=== PATIENT | female | born 1950 | race Two or more races ===

== ENCOUNTER → 2021-05-18 | Emergency (ER) | payer OTHER ==
[~2021-05-18] VITALS: Ht 154.9 cm; Wt 52.2 kg
[~2021-05-18] MED LIST: SYNTHROID75 MCG PO; TAMOXIFEN CITRA20 MG PO; VITAMIN D3125 MC2 PO
== END | disposition home or self-care (01) ==
LOC: ER 11:13
DX: S61.216A Laceration without foreign body of right little finger without damage to nail, initial encounter (principal); W45.8XXA Other foreign body or object entering through skin, initial encounter; Y93.89 Activity, other specified; Y92.018 Other place in single-family (private) house as the place of occurrence of the external cause; Y99.8 Other external cause status

== ENCOUNTER 2022-04-07 12:17 | Emergency (ER) | payer OTHER ==
[~2022-04-07] VITALS: Ht 147.3 cm; Wt 52.2 kg
== END 2022-04-07 18:02 | disposition home or self-care (01) ==
LOC: ER 12:17
DX: N61.0 Mastitis without abscess (principal); Z85.3 Personal history of malignant neoplasm of breast; Z88.2 Allergy status to sulfonamides; Z88.5 Allergy status to narcotic agent

== ENCOUNTER 2023-12-27 19:14 | Emergency (ER) | payer OTHER ==
[~2023-12-27] VITALS: Ht 149.9 cm; Wt 53.1 kg
[2023-12-27] MEDS ORDERED: KETOROLAC TROMETHAMINE 60 MG VIAL IM ONE (22:00)
== END 2023-12-28 00:10 | disposition home or self-care (01) ==
LOC: ER 19:14
DX: M76.899 Other specified enthesopathies of unspecified lower limb, excluding foot (principal); E05.80 Other thyrotoxicosis without thyrotoxic crisis or storm; Z88.0 Allergy status to penicillin; Z88.2 Allergy status to sulfonamides
CPT/HCPCS: 73502; 96372; 99283; J1885

== ENCOUNTER 2024-09-14 10:42 | Emergency (ER) | payer OTHER ==
[~2024-09-14] VITALS: Ht 149.9 cm; Wt 53.1 kg
[2024-09-14] MEDS ORDERED: PEPCID AC20 MG PO (11:50)
[2024-09-14] MEDS ORDERED: BENADRYL ITCH28.3 G1 TOP (11:50)
[2024-09-14] MEDS ORDERED: CIPRO500 MG PO (11:50)
[2024-09-14] MEDS ORDERED: CIPROFLOXACIN HCL 500 MG TABLET PO ONE (12:00)
== END 2024-09-14 12:16 | disposition home or self-care (01) ==
LOC: ER 10:42
DX: R21 Rash and other nonspecific skin eruption (principal); Z88.0 Allergy status to penicillin; Z88.2 Allergy status to sulfonamides